=== PATIENT | female | born 1945 | race Caucasian/White ===

== ENCOUNTER 2016-03-14 15:51 | Emergency (ER) | payer OTHER ==
[~2016-03-14] VITALS: Ht 165.1 cm; Wt 82.2 kg
[~2016-03-14 15:51] MED LIST: ALENDRONATE SOD70 MG PO; CALCIUM + VITA1 EAC1 PO; CALTRATE 600+D1 EAC1 PO; CELEBREX200 MG PO; FERROUS SULFATE PO; HYDROCODON-ACE1 EAC7 PO; IRON325 M1 PO; LISINOPRIL20 MG PO; LOVENOX40 MG/0.4 SC; PRAVASTATIN SOD20 MG PO; TAMOXIFEN CITRA20 MG PO; TRAZODONE HCL50 MG PO; VITAMIN D31000 UNIT PO; VITAMIN D400 UNI1 PO; XARELTO15 MG PO; XARELTO20 MG PO
[2016-03-14 18:46] LABS: HEMATOCRIT 43.5 % (36.0-46.0); MCH 29.6 PG (29.0-34.0); MCHC 33.1 G/DL (30.0-36.0); MCV 89.3 FL (83-99); MEAN PLAT.VOLUME 10.9 uM^3 (9.5-12.4); PLATELET COUNT 268 K/uL (156-360); RBC DIS.WIDTH-CV 12.9 % (11.8-14.6); RBC DIS.WIDTH-SD 41.6 % (39-53); RED BLOOD COUNT 4.87 M/uL (3.80-5.20); WHITE BLOOD COUNT 9.2 K/uL (4.1-10.2)
[2016-03-14 18:54] LABS: CHLORIDE 102 mEq/L (99-109); SODIUM 140 mEq/L (136-147)
[2016-03-14 18:56] LABS: GLUCOSE 125 mg/dL (70-99)
[2016-03-14 18:57] LABS: ANION GAP 14 MEQ/L (2-14)
[2016-03-14 19:00] LABS: GFR ESTIMATE (CALCULATED) 58 mL/min/
[2016-03-14 19:01] LABS: UREA NITROGEN (BUN) 24 mg/dL (9-23)
[2016-03-14] MEDS ORDERED: KEFLEX500 MG PO (20:28)
[2016-03-14] MEDS ORDERED: EXEMESTANE25 MG PO (20:57)
[2016-03-14] MEDS ORDERED: ZESTORETIC 20-1 EAC1 PO (20:57)
[2016-03-14] MEDS ORDERED: OMEPRAZOLE40 M1 PO (20:58)
[2016-03-14] MEDS ORDERED: PROLIA60 MG/1 ML SC (20:58)
[2016-03-14] MEDS ORDERED: LO-DOSE ASPIRIN81 M2 PO (21:00)
[2016-03-14] MEDS ORDERED: MAGNESIUM250 MG PO (21:00)
[2016-03-14] MEDS ORDERED: LORAZEPAM0.5 MG PO (21:00)
[2016-03-14] MEDS ORDERED: VITAMIN D31000 UNI2 PO (21:01)
[2016-03-14] MEDS ORDERED: CALCIUM 600 +1 EA16 PO (21:01)
[2016-03-14 21:08] VITALS: BP 105/58
== END 2016-03-14 21:10 | disposition home or self-care (01) ==
LOC: EME 15:51 → EXP 15:51
PROVIDERS: Physician Assistant
DX: L03.114 Cellulitis of left upper limb (principal); C50.912 Malignant neoplasm of unspecified site of left female breast; Z79.899 Other long term (current) drug therapy
CPT/HCPCS: 80048; 85027; 87040; 93971; 99281; 99285; J0696; J7050